=== PATIENT | male | born 1990 | race Caucasian/White ===

== ENCOUNTER 2016-12-30 21:45 | Inpatient (IN) | payer BC ==
[~2016-12-30] VITALS: Ht 167.6 cm; Wt 87.7 kg
[2016-12-31] VITALS (7 sets, daily range): BP systolic 109–133; BP diastolic 52–62
[2016-12-31 00:12] LABS: HEMATOCRIT 44.9 % (38.0-50.0); MCH 29.2 PG (29.0-34.0); MCHC 34.1 G/DL (30.0-36.0); MCV 85.7 FL (86-99); MEAN PLAT.VOLUME 8.8 uM^3 (9.0-12.4); PLATELET COUNT 258 K/uL (156-360); RBC DIS.WIDTH-CV 12.3 % (11.8-14.6); RBC DIS.WIDTH-SD 38.5 % (39-53); RED BLOOD COUNT 5.24 M/uL (4.00-5.50); WHITE BLOOD COUNT 8.3 K/uL (4.1-10.2)
[2016-12-31] MEDS ORDERED: PROAIR HFA8.5 GM IH (00:17)
[2016-12-31] MEDS ORDERED: SYMBICORT60 INHALAT IH (00:17)
[2016-12-31 00:24] LABS: CHLORIDE 112 mEq/L (99-109); SODIUM 144 mEq/L (136-147)
[2016-12-31 00:26] LABS: GLUCOSE 97 mg/dL (70-99)
[2016-12-31 00:28] LABS: ANION GAP 12 MEQ/L (2-14); TOTAL BILIRUBIN 0.7 mg/dL (0.0-1.0)
[2016-12-31 00:30] LABS: ALKALINE PHOSPHATASE 47 IU/L (3-129); GFR ESTIMATE (CALCULATED) > 59 mL/min/
[2016-12-31 00:31] LABS: UREA NITROGEN (BUN) 13 mg/dL (9-23)
[2017-01-01 11:53] VITALS: BP 112/63
[2017-01-01] MEDS ORDERED: ASPIRIN EC325 MG PO (14:26)
[2017-01-01] MEDS ORDERED: OXYCODONE HCL5 MG PO (14:28)
[2017-01-01] MEDS ORDERED: BISACODYL5 MG PO (14:28)
[2017-01-01] MEDS ORDERED: OXYCONTIN10 MG PO (14:28)
[2017-01-01] MEDS ORDERED: MAG-AL PLUS SUS30 ML PO (14:28)
== END 2017-01-01 19:30 | disposition home or self-care (01) | DRG 517 ==
LOC: EME 21:45 → 3EAST 12-31 00:33 → EDOF 12-31 00:33 → 3EAST 12-31 01:39
PROVIDERS: Nurse Practitioner Family; Orthopaedic Surgery
PROC: 0QSF04Z Reposition Left Patella with Internal Fixation Device, Open Approach (ICD-10-PCS; principal; 2016-12-31)
DX: S82.032A Displaced transverse fracture of left patella, initial encounter for closed fracture (principal); V91.83XA Other injury due to other accident to other powered watercraft, initial encounter; Y93.19 Activity, other involving water and watercraft; Y92.9 Unspecified place or not applicable; J45.909 Unspecified asthma, uncomplicated; Z88.2 Allergy status to sulfonamides
CPT/HCPCS: 73560; 73564; 76000; 80053; 82948; 85027; 86900; 86901; 99281; 99285; C1713; J0690; J1100; J1170; J2405; J3010; J7030; J7120